=== PATIENT | male | born 1960 | race African-American/Black ===

== ENCOUNTER 2020-07-23 21:23 | Inpatient (IN) | payer OTHER ==
--- NOTE | 2020-07-23 21:31 | PDOC ---
Rapid Medical Evaluation Time Seen by Provider: 07/23/20 21:26 Medical Evaluation: Allergies Allergy/AdvReac Type Severity Reaction Status Date / Time NSAIDS (Non-Steroidal Allergy Verified 02/15/20 20:09 Anti-Inflamma 07/23/20 21:29 I performed a brief in-person evaluation of this patient. Pt is a 60 y/o male with complaint of a syncopal episode at about 5 pm today. He states he has had multiple syncopal episodes within the last year and currently has a loop recorder. He states he was clammy, got chest pain, started to have visual changes and then syncopized. He states this is typical for his syncopal episodes. He has a history of chronic back pain on oxycodone. Pertinent physical exam findings: speaking in full sentences, CP not reproducible I have ordered the following: cardiac work up, ekg, cxr Patient to proceed to ED for further evaluation. Discharge Disposition - Diagnosis Syncope - Referrals - Patient Instructions - Post Discharge Activity
[2020-07-23 22:20] LABS: BASO % 1.6 % (0-2.0); EOS % 1.7 % (0-4.5); HEMATOCRIT 32.6 % (35.4-49); HEMOGLOBIN 10.4 GM/dL (11.7-16.9); LYMPH % 27.3 % (8-40); MCH 27.7 pg (25.7-33.7); MEAN CELL VOLUME 86.5 fl (80-96); MEAN PLT VOLUME 9.8 fl (7.5-11.1); MONO % 6.3 % (3.8-10.2); NEUT % 63.1 % (42.8-82.8); PLATELET COUNT 142 K/MM3 (134-434); RBC 3.76 M/mm3 (4.00-5.60); RDW 17.6 % (11.9-15.9); WHITE BLOOD COUNT 4.6 K/mm3 (4.0-10.0)
[2020-07-23 22:30] LABS: INR 0.84 (0.83-1.09); PROTHROMBIN TIME (PATIENT) 9.9 SEC (9.7-13.0)
[2020-07-23 22:32] LABS: ACTIVATED PTT 22.1 SECONDS (25.2-36.5)
[2020-07-23] MEDS ORDERED: predniSONE 5 MG TABLET (UD) PO ONE (22:40)
[2020-07-23] MEDS ORDERED: oxyCODONE HCL 5 MG TABLET PO ONE (22:40)
--- NOTE | 2020-07-23 23:04 | PDOC ---
History of Present Illness - General Chief Complaint: Chest Pain Stated Complaint: CHEST PAIN/SYNCOPE Time Seen by Provider: 07/23/20 21:26 Past History - Medical History Allergies/Adverse Reactions: Allergies Allergy/AdvReac Type Severity Reaction Status Date / Time NSAIDS (Non-Steroidal Allergy Verified 02/15/20 20:09 Anti-Inflamma Home Medications: Ambulatory Orders Oxycodone HCl/Acetaminophen [Percocet 10-325 mg Tablet] 1 each PO Q6H PRN 02/16/20 Acetaminophen [Tylenol .Regular Strength -] 650 mg PO Q4H PRN tablet 02/19/20 Ascorbic Acid [Vitamin C -] 250 mg PO DAILY #30 tablet 02/19/20 Ferrous Sulfate [Feosol] 325 mg PO BID #60 ud 02/19/20 Multivitamins [Multivit ([facility] Formulary)] 1 tab PO DAILY tab 02/19/20 Pantoprazole Sodium [Protonix -] 40 mg PO DAILY #30 tablet.ec 02/19/20 oxyCODONE HCL [Roxicodone -] 10 mg PO Q6H PRN tablet 02/19/20 Anemia: Yes Cardiac Disorders: Yes (loop recorder placed may 2019) COPD: No Other medical history: Degenerative disease - Surgical History Gastric Stapling: Yes - Psycho-Social/Smoking History Smoking History: Former smoker Have you smoked in the past 12 months: No If you are a former smoker, when did you quit?: 16 Information on smoking cessation initiated: No - Substance Abuse Hx (Audit-C & DAST Scrn) How often the patient has a drink containing alcohol: Never Score: In Men: 4 or > Positive; In Women: 3 or > Positive: 0 Screen Result (Pos requires Nsg. Audit-10AR): Negative In the last yr the pt used illegal drug/Rx for NonMed reason: No Score: Yes response is considered Positive: 0 Screen Result (Positive result requires Nsg. DAST-10): Negative Review of Systems - Review of Systems Able to Perform ROS?: Yes Constitutional: Yes: Weakness. No: Unintentional Wgt. Loss, Unexplained wgt Loss HEENTM: Yes: Blurred Vision, Double Vision, Tinnitus Respiratory: No: SOB at Rest, Stridor, Productive cough, Hemoptysis Cardiac (ROS): Yes: Lightheadedness, Syncope. No: Chest Pain, Edema, Irregular Heart Rate, Chest Tightness ABD/GI: Yes: Nausea. No: Constipated, Diarrhea, Vomiting, Abdominal cramping Musculoskeletal: Yes: Muscle Weakness. No: Back Pain Integumentary: Yes: Dryness. No: Rash Neurological: Yes: Headache. No: Seizure, Unsteady Gait *Physical Exam - Vital Signs Last Vital Signs Temp Pulse Resp BP Pulse Ox 97.5 F L 101 H 19 119/81 100 07/23/20 21:26 07/23/20 21:26 07/23/20 21:26 07/23/20 21:26 07/23/20 21:26 - Physical Exam General Appearance: Yes: Appropriately Dressed, Disheveled. No: Apparent Distress HEENT: positive: EOMI. negative: Scleral Icterus (R), Scleral Icterus (L) Neck: positive: Trachea midline, Normal Thyroid, Supple. negative: Tender, Lymphadenopathy (R), Rigidity, Thyromegaly Respiratory/Chest: positive: Lungs Clear, Normal Breath Sounds. negative: Chest Tender, Respiratory Distress, Accessory Muscle Use Cardiovascular: positive: Regular Rhythm, Regular Rate, S1, S2 Gastrointestinal/Abdominal: positive: Normal Bowel Sounds, Soft. negative: Pulsatile Mass, Guarding, Rebound Musculoskeletal: positive: Normal Inspection. negative: CVA Tenderness Extremity: positive: Normal Capillary Refill, Normal Inspection Integumentary: positive: Normal Color, Dry, Warm Neurologic: positive: Fully Oriented, Alert, Normal Mood/Affect, Normal Response ED Treatment Course - LABORATORY CBC & Chemistry Diagram: 07/23/20 22:05 07/23/20 22:05 - ADDITIONAL ORDERS Additional order review: Laboratory Results 07/23/20 07/23/20 22:05 22:05 PT with INR 9.90 INR 0.84 PTT (Actin FS) 22.1 L Sodium 141 Potassium 4.6 Chloride 108 H Carbon Dioxide 27 Anion Gap 6 L BUN 20.6 H Creatinine 1.1 Est GFR (CKD-EPI)AfAm 84.12 Est GFR (CKD-EPI)NonAf 72.58 Random Glucose 81 Calcium 8.4 L Magnesium 2.4 Total Bilirubin 0.3 AST 17 ALT 27 Alkaline Phosphatase 89 Creatine Kinase 84 Troponin I < 0.02 Total Protein 7.4 Albumin 3.7 07/23/20 22:05 RBC 3.76 L MCV 86.5 MCHC 32.0 RDW 17.6 H MPV 9.8 Neutrophils % 63.1 D Lymphocytes % 27.3 Monocytes % 6.3 Eosinophils % 1.7 D Basophils % 1.6 - Medications Given in the ED: ED Medications Discontinued Medications Generic Name Dose Route Start Last Admin Trade Name Grace PRN Reason Stop Dose Admin Lactated Ringer's 1,000 ml 07/23/20 23:34 07/23/20 23:36 Lactated Ringers Solution IV 07/23/20 23:35 1,000 ml ONCE ONE Administration Oxycodone HCl 10 mg 07/23/20 22:40 07/23/20 23:36 Roxicodone - PO 07/23/20 22:41 10 mg ONCE ONE Administration Prednisone 5 mg 07/23/20 22:40 07/23/20 23:36 Deltasone - PO 07/23/20 22:41 5 mg ONCE ONE Administration Medical Decision Making - Medical Decision Making 07/24/20 01:07 Admit to tele obs Discharge - Discharge Information Problems reviewed: Yes Clinical Impression/Diagnosis: Syncope Qualifiers: Syncope type: unspecified Qualified Code(s): R55 - Syncope and collapse Condition: Stable - Admission Yes - Follow up/Referral - Patient Discharge Instructions - Post Discharge Activity
[2020-07-23] MEDS ORDERED: oxyCODONE HCL 5 MG TABLET ONE (23:15)
[2020-07-23 23:27] LABS: ALBUMIN 3.7 g/dl (3.4-5.0); ALK PHOS 89 U/L (45-117); ANION GAP 6 MMOL/L (8-16); BILIRUBIN,TOTAL 0.3 mg/dL (0.2-1); BLOOD UREA NITROGEN 20.6 mg/dL (7-18); CALCIUM 8.4 mg/dL (8.5-10.1); CHLORIDE 108 mmol/L (98-107); CO2 27 mmol/L (21-32); CREATININE 1.1 mg/dL (0.55-1.3); GLUCOSE,RANDOM 81 mg/dL (74-106); MAGNESIUM 2.4 mg/dL (1.8-2.4); POTASSIUM 4.6 mmol/L (3.5-5.1); SGOT/AST 17 U/L (15-37); SGPT/ALT 27 U/L (13-61); SODIUM 141 mmol/L (136-145); TOT PROT 7.4 g/dl (6.4-8.2)
[2020-07-23] MEDS ORDERED: LACTATED RINGERS SOLUTION 1000 ML INFUS.BAG IV ONE (23:34)
--- NOTE | 2020-07-23 23:49 | PDOC ---
Documentation entered by Sia Hassan SCRIBE, acting as scribe for Nilda Walsh DO. Nilda Walsh DO: This documentation has been prepared by the kandace, Sia Hassan SCRIBE, under my direction and personally reviewed by me in its entirety. I confirm that the documentation accurately reflects all work, treatment, procedures, and medical decision making performed by me. Attending Attestation - Resident Resident Name: Maverick Sofia - ED Attending Attestation I have performed the following: I have examined & evaluated the patient, The case was reviewed & discussed with the resident, I agree w/resident's findings & plan, Exceptions are as noted - HPI HPI: 07/23/20 21:59 Patient is a 60 year old male with a significant past medical history of syncope, chronic back pain, and adrenal insufficiency who presents to the ED for evaluation after a syncope episode that occurred earlier today. 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 Patient lives in the [place] and was getting treated by PCP there for syncope. Patient denies: nausea, vomiting, SOB chest pain, abdominal pain, diarrhea, or any other related symptoms. Allergies: NSAIDS - Physicial Exam PE: 07/23/20 22:41 Gen: aaox3, nad heent: PERRL, EOMI, MMM, no tongue biting neck: supple heart: +s1s2 reg lungs: cta b/l abd: soft, nt/nd +bs ext: no c/c/e neuro: cn ii-xii grossly intact, ambulatory in the ER with a steady gait, muscle strength 5/5 UE and LE, sensation intact - Medical Decision Making 07/23/20 22:42 a/p: 60yo male with a syncopal episode tonight while at work -has a loop recorder in place from [employer] that was placed in december after a syncopal episode -PMD in [place] -will send labs, ekg, cxr, trop, head ct -will monitor on tele -will need obs for syncope -pt neuro intact -hx of adrenal insufficiency, will dose night time meds -also with chronic pain, follows with pain management, takes oxycodone 10mg q6hrs -will monitor and reassess 07/23/20 23:34 trop neg elevated bun 07/24/20 00:32 cxr neg 07/24/20 01:[address] negative for acute findings will send [facility]blog to [facility] for syncope Heart Score/ECG Review - ECG Intrepretation Comment:: 07/23/20 22:43 sinus at 78, nl axis, nlinterval, pvc, no acute st/t wave findings Discharge - Discharge Information Problems reviewed: Yes Clinical Impression/Diagnosis: Syncope Condition: Fair - Admission Yes - Follow up/Referral - Patient Discharge Instructions - Post Discharge Activity
--- NOTE | 2020-07-24 02:20 | PN ---
Teaching Attending Note Name of Resident: Tierra Aguirre ATTENDING PHYSICIAN STATEMENT I saw and evaluated the patient. I reviewed the resident's note and discussed the case with the resident. I agree with the resident's findings and plan as documented. SUBJECTIVE: Patient is a 60 year old man with a PMH of NSAID allergy, Syncope, GI bleeding, Polyps on recent colonoscopy, Gastric bypass, Meningioma (found in MRI in April 2020), Loop recorder, Chronic back pain and Adrenal insufficiency who presents to the ER for evaluation after a syncopal episode that occurred earlier today. 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 Patient lives in the [place] and was getting treated by PCP there for syncope. Was off his medications -including bid Hydrocortisone - recently for weeks due to health insurance issues. Patient denies chest pain, shortness of breath, abdominal pain, headache, palpitations, dizziness, fever, chills, nausea, vomiting, diarrhea, constipation, dysuria, frequency, urgency, melena, hematochezia or hematuria. Denies alcohol, tobacco or illicit drug use. No sick contacts or recent travels. Family history DM in Dad, Asthma in Mum and his sister of colon cancer. OBJECTIVE: Alert and not orthostatic Vital Signs Period Temp Pulse Resp BP Sys/Sparks Pulse Ox Last 24 Hr 97.5 F 101 19 119/81 100 HEENT: No Jaundice, eye redness or discharge, PERRLA, EOMI. Normocephalic, atraumatic. External ears are normal and hearing is grossly intact. No nasal discharge. Neck: Supple, nontender. No palpable adenopathy or thyromegaly. No JVD Chest: Good effort. Clear to auscultation and percussion. Heart: Regular. No S3, rub or murmur Abdomen: Not distended, soft, nontender and no HSM. No rebound or guarding. Normal bowel sounds. Ext: Peripheral pulses intact. No leg edema. Skin: Warm and dry. No petechiae, rash or ecchymosis. Neuro: Alert. Oriented x3. CN 2-12 grossly intact. Sensation grossly intact in all four extremities and DTR are symmetric. Psych: Appropriate mood and affect. Good insight. Home Medications Medication Instructions Recorded Oxycodone HCl/Acetaminophen 1 each PO Q6H PRN 02/16/20 [Percocet 10-325 mg Tablet] Acetaminophen [Tylenol .Regular 650 mg PO Q4H PRN tablet 02/19/20 Strength -] Ascorbic Acid [Vitamin C -] 250 mg PO DAILY #30 tablet 02/19/20 Ferrous Sulfate [Feosol] 325 mg PO BID #60 ud 02/19/20 Multivitamins [Multivit ([facility] 1 tab PO DAILY tab 02/19/20 Formulary)] Pantoprazole Sodium [Protonix -] 40 mg PO DAILY #30 tablet.ec 02/19/20 oxyCODONE HCL [Roxicodone -] 10 mg PO Q6H PRN tablet 02/19/20 Abnormal Lab Results 07/23/20 07/23/20 07/23/20 22:05 22:05 22:05 RBC 3.76 L Hgb 10.4 L Hct 32.6 L RDW 17.6 H PTT (Actin FS) 22.1 L Chloride 108 H Anion Gap 6 L BUN 20.6 H Calcium 8.4 L ASSESSMENT AND PLAN: 1. Syncope - No acute abnormality on CXR and an electronic device (loop recorder) at the left margin of the heart. No evidence of acute intracranial pathology on noncontrast head CT scan. Viral testing for COVID-19 ordered and patient placed on airborne, droplet and contact isolation. EKG shows NSR at 78/minute, PVCs and QTc [address]-T wave changes. Not significantly changed compared to prior EKG. Initial troponin is negative. Will avoid drugs that may prolong QTc. Will admit to telemetry, repeat troponin, repeat EKG, get ECHO, carotid doppler, fasting lipids, do speech and swallow evaluation, neurochecks and implement fall/aspiration/seizure precautions. Consult Cardiology/PT/Neurology. During the day, will get results of his recent MRI from his PCP. Discuss with Cardiology whether he can get a brain MRI with a loop recorder in place. Got Prednisone and Oxycdone in the ER. Will restart all his home medications. Will continue comprehensive care for all of patients comorbid conditions treatment of Adrenal insufficiency. Consult Endocrine 2. Anemia Cause unclear. Will do basic anemia work up including serial stool guaiacs, reticulocyte count and iron studies. 3. Obesity Counseled on the risks associated with obesity. Will provide patient all the necessary assistance, counseling and positive reinforcement to facilitate weight loss. Consult client service professional. 4. Hypertension Will restart suitable outpatient antihypertensive drugs when clinically appropriate. Subsequently, will revise regimen to ensure [id number] excellent BP control. Patient counseled on the injurious effects of uncontrolled hypertension. Nonpharmacologic measures to control hypertension like weight loss, salt restriction and exercise stressed. Importance of adherence to treatment regimen and attainment of normotension emphasized. 5. DVT prophylaxis - Lovenox 40 mg SQ q 24 hours. 6. Advance directives - Full code
--- NOTE | 2020-07-24 06:24 | HP ---
CHIEF COMPLAINT: PCP: HISTORY OF PRESENT ILLNESS: 60yo M with PMHx of multiple syncopal episodes, chronic back pain, adrenal insufficiency, migraines, loop recorder in place, and recent MRI study showing meningioma who presented for another syncopal episode. The syncopal episodes started last year and initially occurred monthly, but recently they have progressed to occurring 2-3x/week. He has not been able to correlate the episodes with any particular activity. He has also experienced severe headaches since about November that he describes as throbbing and are associated with photophobia. Furthermore, he feels his vision has worsened in the last 4-5 weeks. Endorsed vertigo and nausea, but denied VD, constipation, dysuria, polyuria. ER course was notable for: (1) anemia (Hgb 10.4, Hct 32.6), PTT 22.1 (2) EKG showing sinus arrhythmia with occasional PVCs Recent Travel: none PAST MEDICAL HISTORY: as per HPI PAST SURGICAL HISTORY: gastric bypass 2001 rotator cuff repair Social History: Smokin-7 cigs per day from 18yo to 42yo Alcohol: maybe one beer per month Drugs: denied Work: [employer] Home: lives alone, recently purchased a condo in the [place] Allergies NSAIDS (Non-Steroidal Anti-Inflamma Allergy (Verified 02/15/20 20:09) HOME MEDICATIONS: Home Medications Medication Instructions Recorded Oxycodone HCl/Acetaminophen 1 each PO Q6H PRN 02/16/20 [Percocet 10-325 mg Tablet] Acetaminophen [Tylenol .Regular 650 mg PO Q4H PRN tablet 02/19/20 Strength -] Ascorbic Acid [Vitamin C -] 250 mg PO DAILY #30 tablet 02/19/20 Ferrous Sulfate [Feosol] 325 mg PO BID #60 ud 02/19/20 Multivitamins [Multivit ([facility] 1 tab PO DAILY tab 02/19/20 Formulary)] Pantoprazole Sodium [Protonix -] 40 mg PO DAILY #30 tablet.ec 02/19/20 oxyCODONE HCL [Roxicodone -] 10 mg PO Q6H PRN tablet 02/19/20 REVIEW OF SYSTEMS as per HPI PHYSICAL EXAMINATION Vital Signs - 24 hr 07/23/20 07/24/20 21:26 03:24 Temperature 97.5 F L Pulse Rate 101 H Pulse Rate [ 58 L Apical] Respiratory 19 18 Rate Blood Pressure 119/81 Blood Pressure 127/94 [Right Arm] O2 Sat by Pulse 100 99 Oximetry (%) GENERAL: AAM, overweight body habitus, AAOx4 showing no signs of acute distress HEAD: Normal with no signs of trauma EYES: PERRL, extraocular movements intact bilaterally EARS, NOSE, THROAT: dry mucous membranes. NECK: No lymphadenopathy LUNGS: CTAB. No wheezes HEART: RRR, normal S1 and S2 without murmur ABDOMEN: Soft, mildly tender with positive Dela Cruz's sign, mildly protuberant, normoactive bowel sounds EXTREMITIES: 2+ radial and dorsalis pedis pulses, warm to touch bilaterally, nontender to palpation, no peripheral edema appreciated, no active lesions or ulcers noted on feet bilaterally including interdigital web spaces NEUROLOGICAL: Cranial nerves II-XII grossly intact. Normal speech with symmetricalfacial movements PSYCHIATRIC: Cooperative and interactive, responds appropriately. Limited eye contact. Tired mood and affect congruent with stated mood SKIN: no rashes or lesions noted Laboratory Results - last 24 hr 07/23/20 07/23/20 07/23/20 22:05 22:05 22:05 WBC 4.6 RBC 3.76 L Hgb 10.4 L Hct 32.6 L MCV 86.5 MCH 27.7 MCHC 32.0 RDW 17.6 H Plt Count 142 D MPV 9.8 Absolute Neuts (auto) 2.9 Neutrophils % 63.1 D Lymphocytes % 27.3 Monocytes % 6.3 Eosinophils % 1.7 D Basophils % 1.6 Nucleated RBC % 0 PT with INR 9.90 INR 0.84 PTT (Actin FS) 22.1 L Sodium 141 Potassium 4.6 Chloride 108 H Carbon Dioxide 27 Anion Gap 6 L BUN 20.6 H Creatinine 1.1 Est GFR (CKD-EPI)AfAm 84.12 Est GFR (CKD-EPI)NonAf 72.58 Random Glucose 81 Calcium 8.4 L Magnesium 2.4 Total Bilirubin 0.3 AST 17 ALT 27 Alkaline Phosphatase 89 Creatine Kinase 84 Troponin I < 0.02 Total Protein 7.4 Albumin 3.7 ASSESSMENT/PLAN: 60yo M with PMHx of multiple syncopal episodes, chronic back pain, adrenal insufficiency, migraines, loop recorder in place, and recent MRI study showing meningioma who presented for another syncopal episode. ED workup was remarkable for anemia (Hgb 10.4, Hct 32.6), PTT 22.1 and EKG showing sinus arrhythmia with occasional PVCs. #syncope workup differential dx: 2/2 to meningioma, 2/2 to adrenal insufficiency, 2/2 complex migraines, cardiac ediology, less likely orthostatics or dehydration - primary goal would be to obtain MRI results from hospital. Patient unable to recall which hospital, may re-discuss with patient, contact family members, contact PCP, or get social work involved - neurology consulted - repeat MRI? assess MRI compatibility with loop recorder - cardiology consulted given EKG findings - Echo ordered - Carotid doppler ordered - lipid profile - speech and swallow eval - repeat trop - PT - iron studies for anemia workup - restart home meds and supplements: hydrocortisone 10mg am, 5mg pm, iron, Ca, multivits, B12, folate #FEN - no standing fluids - replete lytes PRN - regular diet #PPX - DVT: lovenox #Dispo: Telemetry Family Medical History Family History: As Documented Visit type - Emergency Visit Emergency Visit: Yes ED Registration Date: 07/24/20 Care time: The patient presented to the Emergency Department on the above date and was hospitalized for further evaluation of their emergent condition. - New Patient This patient is new to me today: Yes Date on this admission: 07/24/20 - Critical Care Critical Care patient: No ATTENDING PHYSICIAN STATEMENT I saw and evaluated the patient. I reviewed the resident's note and discussed the case with the resident. I agree with the resident's findings and plan as documented. SUBJECTIVE: OBJECTIVE: ASSESSMENT AND PLAN:
[2020-07-24] MEDS ORDERED: oxyCODONE HCL 5 MG TABLET PO ONE (09:38)
[2020-07-24] MEDS ORDERED: oxyCODONE HCL 10 MG SUSTAINED ACTING TABLET ONE ×2 (09:48→15:56)
[2020-07-24] MEDS: ENOXAPARIN NA (PORCINE) 40 MG/0.4 ML DISP.SYRIN SQ SCH (09:59)
--- NOTE | 2020-07-24 10:06 | EKG ---
Test Reason : Blood Pressure : / mmHG Vent. Rate : 078 BPM Atrial Rate : 078 BPM P-R Int : 152 ms QRS Dur : 088 ms QT Int : 396 ms P-R-T Axes : 061 015 063 degrees QTc Int : 451 ms SINUS RHYTHM WITH SINUS ARRHYTHMIA WITH OCCASIONAL PREMATURE VENTRICULAR COMPLEXES OTHERWISE NORMAL ECG WHEN COMPARED WITH ECG OF 15-FEB-2020 20:27, PREMATURE VENTRICULAR COMPLEXES ARE NOW PRESENT Confirmed by SLOANE KING, ROSARIO ([id number]) on 07/24/2020 10:05:36 AM Referred By: Confirmed By:ROSARIO ANTON MD
--- NOTE | 2020-07-24 11:03 | CONSULT ---
Admitting History and Physical - Admission History of Present Illness: 60yo M with PMHx of multiple syncopal episodes, chronic back pain, adrenal insufficiency, migraines, loop recorder in place, and recent MRI study showing meningioma who presented for another syncopal episode. Selected Entries 07/24/20 07/24/20 07/24/20 03:00 03:24 07:10 Temperature 97.9 F Pulse Rate [ 58 L 68 Apical] Respiratory 18 17 Rate Respiratory Normal Normal Depth Respiratory Non-Labored Non-Labored Effort Oxygen Delivery Room Air Room Air Room Air Method 07/24/20 09:59 Temperature Pulse Rate [ 48 L Apical] Respiratory 21 H Rate Respiratory Normal Depth Respiratory Non-Labored Effort Oxygen Delivery Room Air Method Laboratory Tests 07/23/20 07/24/20 22:05 03:16 WBC 4.6 COVID-19 (ZAIRE) Pending Reg diet/thin liquids ordered. - Past Medical History Cardiovascular: Yes: Other (Syncope) - Smoking History Smoking history: Former smoker Have you smoked in the past 12 months: No If you are a former smoker, when did you quit?: 16 - Alcohol/Substance Use Hx Alcohol Use: Yes (Social) History of Substance Use: reports: Cocaine History - Admission Reason For Visit: SYNCOPE
--- NOTE | 2020-07-24 11:36 | PN ---
Physical Exam: SUBJECTIVE: Patient seen and examined at bedside. He endorses prodromal dizziness, chest pain, nausea prior to syncopal event. He states this has occurred similarly in the past when he is physically active. Endorses workup only during prior hospitalizations- states he did not have insurance and was unable to follow up as outpatient. OBJECTIVE: Vital Signs Period Temp Pulse Resp BP Sys/Sparks Pulse Ox Last 24 Hr 97.5 F-97.9 F 48-101 17-21 119-150/63-99 98-100 GENERAL: The patient is awake, alert, and fully oriented, in no acute distress. HEAD: Normocephalic, atraumatic. EYES: PERRL, extraocular movements intact, sclera anicteric. ENT: Oropharynx clear, without erythema or exudates. Moist mucous membranes. NECK: Trachea midline, full range of motion. Supple without lymphadenopathy. LUNGS: Breath sounds equal, clear to auscultation bilaterally. No wheezes, no crackles. No accessory muscle use. HEART: Regular rate and rhythm. S1, S2 without murmur, rub or gallop. ABDOMEN: Soft, nondistended, nontender to light and deep palpation x4 quadrants. No rebound tenderness, no guarding. Normoactive bowel sounds x4 quadrants. No hepatosplenomegaly, no masses appreciated. EXTREMITIES: 2+ radial, dorsalis pedis pulses bilaterally. Warm, well-perfused. No lower extremity edema bilaterally. BACK: Tenderness to palpation over thoracic and lumbar spine. NEUROLOGICAL: Cranial nerves II through XII grossly intact. Normal speech. No gross focal deficits. PSYCH: Normal mood, normal affect upon my encounter. SKIN: Warm, dry. Laboratory Results - last 24 hr 07/23/20 07/23/20 07/23/20 22:05 22:05 22:05 WBC 4.6 RBC 3.76 L Hgb 10.4 L Hct 32.6 L MCV 86.5 MCH 27.7 MCHC 32.0 RDW 17.6 H Plt Count 142 D MPV 9.8 Absolute Neuts (auto) 2.9 Neutrophils % 63.1 D Lymphocytes % 27.3 Monocytes % 6.3 Eosinophils % 1.7 D Basophils % 1.6 Nucleated RBC % 0 PT with INR 9.90 INR 0.84 PTT (Actin FS) 22.1 L Sodium 141 Potassium 4.6 Chloride 108 H Carbon Dioxide 27 Anion Gap 6 L BUN 20.6 H Creatinine 1.1 Est GFR (CKD-EPI)AfAm 84.12 Est GFR (CKD-EPI)NonAf 72.58 Random Glucose 81 Calcium 8.4 L Magnesium 2.4 Total Bilirubin 0.3 AST 17 ALT 27 Alkaline Phosphatase 89 Creatine Kinase 84 Troponin I < 0.02 Total Protein 7.4 Albumin 3.7 Active Medications Generic Name Dose Route Start Last Admin Trade Name Freq PRN Reason Stop Dose Admin Enoxaparin Sodium 40 mg 07/24/20 10:00 07/24/20 09:59 Lovenox - SQ 40 mg DAILY AYAKA Administration ASSESSMENT/PLAN: Patient is a 60 year old male with history of numerous prior syncopal episodes s/p loop recorder, reported meningioma, adrenal insufficiency, GI polyps (s/p colonoscopy 4 years ago), chronic back pain, presents after syncopal episode. Syncopal episode -Etiology may be neurogenic (secondary to ?meningioma), cardiac (arrhythmia), or endocrine (adrenal insufficiency). -CT head negative for acute pathology. Attempting to obtain records regarding prior MRI that revealed meningioma. -Obtain thoracic, lumbar spine radiograph as patient had some tenderness to palpation s/p fall -noted history chronic back pain. -Orthostatics negative -EKG reveals sinus rhythm, with sinus arrhythmia and PVCs. Troponin negative. -Cardiac telemetry monitoring -Cardiology consult for interrogation of loop recorder. -Last transthoracic cardiac ECHO was done on 02/2020- EF 55%, unremarkable study -Carotid duplex -Fall precautions Adrenal insufficiency -Continue home Hydrocortisone Normocytic anemia -Prior hospitalization with diagnosis of iron deficiency anemia -Obtain anemia workup. History of meningioma -CT head unremarkable. -Attempting to obtain records regarding prior MRI that revealed meningioma. Gastro-esophageal reflux -Pantoprazole 40mg PO daily. Chronic back pain -Continue home Acetaminophen, Oxycodone FEN -No IV fluids indicated -Follow BMP -Sodium modified diet Prophylaxis -Lovenox 40mg subq daily -Pantoprazole 40mg PO daily Disposition -Continue care on Telemetry floor Visit type - Emergency Visit Emergency Visit: Yes ED Registration Date: 07/24/20 Care time: The patient presented to the Emergency Department on the above date and was hospitalized for further evaluation of their emergent condition. - New Patient This patient is new to me today: Yes Date on this admission: 07/24/20 - Critical Care Critical Care patient: No - Discharge Referral Referred to [facility] Med P.C.: No ATTENDING PHYSICIAN STATEMENT I saw and evaluated the patient. I reviewed the resident's note and discussed the case with the resident. I agree with the resident's findings and plan as documented. SUBJECTIVE: OBJECTIVE: ASSESSMENT AND PLAN:
--- NOTE | 2020-07-24 11:49 | PN ---
Teaching Attending Note Name of Resident: Mateo Reyes ATTENDING PHYSICIAN STATEMENT I saw and evaluated the patient. I reviewed the resident's note and discussed the case with the resident. I agree with the resident's findings and plan as documented. SUBJECTIVE: Seen and examined at bedside. Patient complaining of chronic back pain. Is alert and oriented x3, hypertensive due to the pain. 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 This patient has had numerous hospitalizations at multiple different hospitals without adequate follow-up for the last 6 months and is highly disorganized care. #Syncopal episode Broad differential includes cardiac, chronic opiate use, possible intracranial m ass, incompletely treated renal insufficiency Echocardiogram, telemetry, cardiology consult to interrogate loop recorder Obtain outside records from previous hospitalizations to determine any previous diagnoses and work-up Hold on new MRI Brain pending obtaining initial recent MRI from [facility] -Check a.m. cortisol Check orthostatics #Adrenal insufficiency Continue home dose prednisone Check a.m. cortisol #Normocytic anemia Per patient was previously diagnosed with iron deficiency anemia Check iron panels, anemia work-up #Chronic back pain Continue chronic opiates #GERD Continue home pantoprazole
[2020-07-24] MEDS ORDERED: ACETAMINOPHEN 325 MG TABLET (FP) PO PRN (13:44)
[2020-07-24 13:53] LABS: BASO % 0.9 % (0-2.0); EOS % 2.4 % (0-4.5); HEMATOCRIT 31.1 % (35.4-49); HEMOGLOBIN 9.8 GM/dL (11.7-16.9); LYMPH % 31.3 % (8-40); MCH 27.3 pg (25.7-33.7); MCHC 31.4 g/dl (32.0-35.9); MEAN CELL VOLUME 87.1 fl (80-96); MEAN PLT VOLUME 9.1 fl (7.5-11.1); MONO % 6.8 % (3.8-10.2); NEUT % 58.6 % (42.8-82.8); PLATELET COUNT 124 K/MM3 (134-434); RBC 3.57 M/mm3 (4.00-5.60); RDW 18.2 % (11.9-15.9); WHITE BLOOD COUNT 5.1 K/mm3 (4.0-10.0)
[2020-07-24 14:29] LABS: ALBUMIN 3.3 g/dl (3.4-5.0); BILIRUBIN,TOTAL 0.2 mg/dL (0.2-1); BLOOD UREA NITROGEN 16.8 mg/dL (7-18); CALCIUM 8.4 mg/dL (8.5-10.1); CREATININE 1.1 mg/dL (0.55-1.3); MAGNESIUM 2.2 mg/dL (1.8-2.4); PHOSPHOROUS 4.3 mg/dL (2.5-4.9); POTASSIUM 4.5 mmol/L (3.5-5.1); TOT PROT 6.7 g/dl (6.4-8.2)
[2020-07-24 14:34] LABS: IRON SERUM 68 ug/dL (50-175); TOTAL IRON BINDING CAPACITY 403 ug/dL (250-450)
--- NOTE | 2020-07-24 15:38 | CON.CARD ---
Cardiology Consult (text) - Consultation Consultation Note: Chief Complaint: Syncope History of Present Illness: Patient is a 60 year old male with history of syncope s/p Loop recorder ([employer]) implanted in May 2019 at [facility] here with syncope. Pt has had several episodes over past year. All similar, he feels lightheaded and sweaty and then faints. At times he has cp that is often independent of syncope. This is sharp pain on left chest that is worse with deep breaths, cough and pressing on the area. No sob palps pnd orthopnea le edema. pmh: per hpi psh: loop recorder, shoulder surgery social: no tob fam: no premature cad, scd ros: per hpi; all others nl meds: Ambulatory Orders Oxycodone HCl/Acetaminophen [Percocet 10-325 mg Tablet] 1 each PO Q6H PRN 02/16/20 Acetaminophen [Tylenol .Regular Strength -] 650 mg PO Q4H PRN tablet 02/19/20 Ascorbic Acid [Vitamin C -] 250 mg PO DAILY #30 tablet 02/19/20 Ferrous Sulfate [Feosol] 325 mg PO BID #60 ud 02/19/20 Multivitamins [Multivit ([facility] Formulary)] 1 tab PO DAILY tab 02/19/20 Pantoprazole Sodium [Protonix -] 40 mg PO DAILY #30 tablet.ec 02/19/20 oxyCODONE HCL [Roxicodone -] 10 mg PO Q6H PRN tablet 02/19/20 Hydrocortisone 5 mg PO DAILY 07/24/20 Hydrocortisone 10 mg PO HS 07/24/20 Vital Signs Period Temp Pulse Resp BP Sys/Sparks Pulse Ox Last 24 Hr 97.5 F-97.9 F 48-101 17-21 118-150/63-99 98-100 nad no jvd rrr s1s2 no mrg cta bl nl eff aao3 no le e/c/c abd nt nd pos bs no jaundice diaphoresis pos dp pt no carotid bruits +chest wall tenderness Laboratory Last Values WBC 5.1 K/mm3 (4.0-10.0) 07/24/20 13:40 RBC 3.57 M/mm3 (4.00-5.60) L 07/24/20 13:40 Hgb 9.8 GM/dL (11.7-16.9) L 07/24/20 13:40 Hct 31.1 % (35.4-49) L 07/24/20 13:40 MCV 87.1 fl (80-96) 07/24/20 13:40 MCH 27.3 pg (25.7-33.7) 07/24/20 13:40 MCHC 31.4 g/dl (32.0-35.9) L 07/24/20 13:40 RDW 18.2 % (11.9-15.9) H 07/24/20 13:40 Plt Count 124 K/MM3 (134-434) L 07/24/20 13:40 MPV 9.1 fl (7.5-11.1) 07/24/20 13:40 Absolute Neuts (auto) 3.0 K/mm3 (1.5-8.0) 07/24/20 13:40 Neutrophils % 58.6 % (42.8-82.8) 07/24/20 13:40 Lymphocytes % 31.3 % (8-40) 07/24/20 13:40 Monocytes % 6.8 % (3.8-10.2) 07/24/20 13:40 Eosinophils % 2.4 % (0-4.5) 07/24/20 13:40 Basophils % 0.9 % (0-2.0) 07/24/20 13:40 Nucleated RBC % 0 % (0-0) 07/24/20 13:40 PT with INR 9.90 SEC (9.7-13.0) 07/23/20 22:05 INR 0.84 (0.83-1.09) 07/23/20 22:05 PTT (Actin FS) 22.1 SECONDS (25.2-36.5) L 07/23/20 22:05 Sodium 140 mmol/L (136-145) 07/24/20 13:40 Potassium 4.5 mmol/L (3.5-5.1) 07/24/20 13:40 Chloride 108 mmol/L (98-107) H 07/24/20 13:40 Carbon Dioxide 25 mmol/L (21-32) 07/24/20 13:40 Anion Gap 7 MMOL/L (8-16) L 07/24/20 13:40 BUN 16.8 mg/dL (7-18) 07/24/20 13:40 Creatinine 1.1 mg/dL (0.55-1.3) 07/24/20 13:40 Est GFR (CKD-EPI)AfAm 84.12 07/24/20 13:40 Est GFR (CKD-EPI)NonAf 72.58 07/24/20 13:40 Random Glucose 99 mg/dL (74-106) 07/24/20 13:40 Calcium 8.4 mg/dL (8.5-10.1) L 07/24/20 13:40 Phosphorus 4.3 mg/dL (2.5-4.9) 07/24/20 13:40 Magnesium 2.2 mg/dL (1.8-2.4) 07/24/20 13:40 Iron 68 ug/dL (50-175) 07/24/20 13:40 TIBC 403 ug/dL (250-450) 07/24/20 13:40 TIBC Cancelled 07/24/20 13:40 Iron Saturation 16 % (17.5-39) L 07/24/20 13:40 Unsaturated IBC 335 ug/dL (200-275) H 07/24/20 13:40 Ferritin 11.4 ng/ml (8-388) 07/24/20 13:40 Ferritin Cancelled 07/24/20 13:40 Total Bilirubin 0.2 mg/dL (0.2-1) 07/24/20 13:40 AST 18 U/L (15-37) 07/24/20 13:40 ALT 31 U/L (13-61) 07/24/20 13:40 Alkaline Phosphatase 82 U/L (45-117) 07/24/20 13:40 Creatine Kinase 84 U/L (26-308) 07/23/20 22:05 Troponin I < 0.02 ng/ml (0.00-0.05) 07/24/20 13:40 Total Protein 6.7 g/dl (6.4-8.2) 07/24/20 13:40 Albumin 3.3 g/dl (3.4-5.0) L 07/24/20 13:40 Triglycerides 86 mg/dL (0-150) 07/24/20 13:40 Cholesterol 153 mg/dL (50-200) 07/24/20 13:40 Total LDL Cholesterol 64 mg/dL (5-100) 07/24/20 13:40 HDL Cholesterol 78 mg/dL (40-60) H 07/24/20 13:40 cxr: clear ecg: sr nl intervals no ischemic changes tele: sr carotids 07/2020: no sig stenosis a/p: Patient is a 60 year old male with history of syncope s/p Loop recorder ([employer]) implanted in May 2019 at [facility] here with syncope. syncope, dizziness: -recurrent episodes -no signs acs or chf -ecg and tele benign -carotids w/o stenosis -echo pending -will contact [employer] to check loop recorder -monitor on tele for now cp: -atypical, reproducible, seems MSK, no suggestion of cardiac etiology. no signs acs.
[2020-07-24] MEDS: oxyCODONE HCL 5 MG TABLET PO PRN (20:18)
[2020-07-24] MEDS ORDERED: HYDROCORTISONE 10 MG TABLET PO SCH (22:00)
[2020-07-24] MEDS: FERROUS SO4 325 MG TABLET (FP) PO SCH (22:09)
[2020-07-24 23:16] VITALS: BMI 29.9
[2020-07-25] MEDS: oxyCODONE HCL 5 MG TABLET PO PRN ×3 (01:57→14:10)
--- NOTE | 2020-07-25 05:29 | PN ---
Progress Note, Physician Chief Complaint: [employer] loop recorder interrogated, report in chart No sig arrhythmias TELE: NSR, single PVC No CP/SOB/palps/dizziness History of Present Illness: Syncope Hx of [employer] ILR Hx meningioma SH: former smoker - Current Medication List Current Medications: Active Medications Acetaminophen (Tylenol -) 650 mg PO Q4H PRN PRN Reason: PAIN LEVEL 4 - 6 Ascorbic Acid (Vitamin C -) 250 mg PO DAILY [facility] Enoxaparin Sodium (Lovenox -) 40 mg SQ DAILY [facility] Last Admin: 07/24/20 09:59 Dose: 40 mg Documented by: Ferrous Sulfate (Feosol -) 325 mg PO BID [facility] Last Admin: 07/24/20 22:09 Dose: 325 mg Documented by: Hydrocortisone (Cortef -) 5 mg PO DAILY [facility] Hydrocortisone (Cortef -) 10 mg PO HS [facility] Last Admin: 07/24/20 22:10 Dose: 10 mg Documented by: Multivitamins/Minerals/Vitamin C (Tab-A-Vit -) 1 tab PO DAILY [facility] Oxycodone HCl (Roxicodone -) 10 mg PO Q6H PRN PRN Reason: PAIN LEVEL 7 - 10 Last Admin: 07/25/20 01:57 Dose: 10 mg Documented by: Pantoprazole Sodium (Protonix -) 40 mg PO DAILY [facility] - Objective Vital Signs: Vital Signs Temperature 97.7 F 07/25/20 01:00 Pulse Rate 73 07/25/20 01:00 Respiratory Rate 18 07/25/20 01:00 Blood Pressure 129/66 07/25/20 01:00 O2 Sat by Pulse Oximetry (%) 98 07/24/20 20:00 Constitutional: Yes: No Distress, Calm Cardiovascular: Yes: Regular Rate and Rhythm Respiratory: Yes: CTA Bilaterally Gastrointestinal: Yes: Soft (nt) Edema: No Neurological: Yes: Alert, Oriented ...Motor Strength: WNL Psychiatric: Yes: WNL Labs: CBC, BMP 07/24/20 13:40 07/24/20 13:40 INR, PTT INR 0.84 (0.83-1.09) 07/23/20 22:05 Laboratory Tests 07/23/20 07/24/20 07/24/20 22:05 03:16 13:40 WBC Hct Plt Count Sodium Potassium Creatinine Troponin I < 0.02 < 0.02 COVID-19 (ZAIRE) Pending 07/25/20 07/25/20 05:53 05:53 WBC 4.4 Hct 28.1 L Plt Count 133 L Sodium 141 Potassium 4.5 Creatinine 0.9 Troponin I COVID-19 (ZAIRE) - ....Imaging EKG: Image Reviewed Assessment/Plan ecg: sr nl intervals no ischemic changes tele: sr carotids 07/2020: no sig stenosis a/p: Patient is a 60 year old male with history of syncope s/p Loop recorder ([employer]) implanted in May [address] [facility] here with syncope. syncope, dizziness: -recurrent episodes -no signs acs or chf -ecg and tele benign -carotids w/o stenosis -echo pending -[employer]tronic ILR interrogated, report in paper chart: no sig arrhythmias -Check orthostatics cp: -atypical, reproducible, seems MSK, no suggestion of cardiac etiology. no signs acs. -Enzymes neg -for echo -Discharge planning
[2020-07-25 06:33] LABS: HEMATOCRIT 28.1 % (35.4-49); HEMOGLOBIN 8.9 GM/dL (11.7-16.9); MCH 27.5 pg (25.7-33.7); MCHC 31.6 g/dl (32.0-35.9); MEAN CELL VOLUME 87.2 fl (80-96); MEAN PLT VOLUME 10.7 fl (7.5-11.1); PLATELET COUNT 133 K/MM3 (134-434); RBC 3.23 M/mm3 (4.00-5.60); RDW 17.9 % (11.9-15.9); WHITE BLOOD COUNT 4.4 K/mm3 (4.0-10.0)
[2020-07-25 07:03] LABS: ALBUMIN 2.9 g/dl (3.4-5.0); BILIRUBIN,TOTAL 0.1 mg/dL (0.2-1); BLOOD UREA NITROGEN 20.4 mg/dL (7-18); CALCIUM 7.8 mg/dL (8.5-10.1); CREATININE 0.9 mg/dL (0.55-1.3); MAGNESIUM 2.2 mg/dL (1.8-2.4); PHOSPHOROUS 4.1 mg/dL (2.5-4.9); POTASSIUM 4.5 mmol/L (3.5-5.1); TOT PROT 5.8 g/dl (6.4-8.2)
[2020-07-25] MEDS ORDERED: PT OWN MED DRAWER 7, Y5N ONE (09:33)
[2020-07-25] MEDS: FERROUS SO4 325 MG TABLET (FP) PO SCH (09:36)
[2020-07-25] MEDS: ENOXAPARIN NA (PORCINE) 40 MG/0.4 ML DISP.SYRIN SQ SCH (09:37)
[2020-07-25] MEDS ORDERED: HYDROCORTISONE 5 MG TABLET PO SCH (10:00)
[2020-07-25] MEDS ORDERED: PANTOPRAZOLE 40 MG TABLET PO SCH (10:00)
[2020-07-25] MEDS ORDERED: ASCORBIC ACID 250 MG TABLET (FP) PO SCH (10:00)
[2020-07-25] MEDS ORDERED: MULTIVITAMINS (DAILY MVI) TABLET (FP) PO SCH (10:00)
--- NOTE | 2020-07-25 12:37 | PN ---
Teaching Attending Note Name of Resident: Mateo Reyes ATTENDING PHYSICIAN STATEMENT I saw and evaluated the patient. I reviewed the resident's note and discussed the case with the resident. I agree with the resident's findings and plan as documented. SUBJECTIVE: Seen and examined at bedside. No complaints. Interrogation of loop recorder with no significant arrhythmias. Orthostatics negative. Multiple hospital records obtained. Patient had unremarkable echocardiogram in February of this year. As syncope predates this a new echocardiogram is of low clinical value. An MRI at [facility] earlier this year showed stability of the meningioma since 2017. After reviewing other medical records, there are no additional tests that can be performed and patient that would contribute to his diagnosis. Patient is medically cleared for discharge. We will attempt to set up a coordinated care for him within the [facility] system. Patient instructed that all of his patients should be within the same system to ensure adequate communication and coordination between his doctors given the complexity of his care. OBJECTIVE Last Vital Signs Temp Pulse Resp BP Pulse Ox 97.9 F 48 L 21 H 150/99 100 07/24/20 07:10 07/24/20 09:59 07/24/20 09:59 07/24/20 09:59 07/24/20 09:59 PE: Per resident note Labs/Imaging: reviewed ASSESSMENT/PLAN 60-year-old male with past medical history of multiple syncopal episodes, chronic back pain, renal sufficiency, migraines, loop recorder in place, recently diagnosed meningioma presents with another syncopal episode. This patient has had numerous hospitalizations at multiple different hospitals without adequate follow-up for the last 6 months and is highly disorganized care. Interrogation of loop recorder with no significant arrhythmias. Orthostatics negative. Multiple hospital records obtained. Patient had unremarkable echocardiogram in February of this year. As syncope predates this a new echocardiogram is of low clinical value. An MRI at [facility] earlier this year showed stability of the meningioma since 2017. After reviewing other medic al records, there are no additional tests that can be performed and patient that would contribute to his diagnosis. Patient is medically cleared for discharge. We will attempt to set up a coordinated care for him within the [facility] system. Patient instructed that all of his patients should be within the same system to ensure adequate communication and coordination between his doctors given the complexity of his care.
[2020-07-25 13:32] VITALS: BP 128/79; PULSE 58; TEMP 97.8
--- NOTE | 2020-07-25 13:41 | DS ---
Physical Exam: SUBJECTIVE: Patient seen and examined at bedside. Denies acute complaints. Ambulating without any further syncopal episodes, or chest pain, palpitations, lightheadedness, dizziness, nausea, vomiting. OBJECTIVE: Vital Signs Period Temp Pulse Resp BP Sys/Sparks Pulse Ox Last 24 Hr 97.6 F-97.9 F 57-106 18-20 110-129/46-90 95-100 PHYSICAL EXAM GENERAL: The patient is awake, alert, and fully oriented, in no acute distress. HEAD: Normocephalic, atraumatic. EYES: PERRL, extraocular movements intact, sclera anicteric. ENT: Oropharynx clear, without erythema or exudates. Moist mucous membranes. NECK: Trachea midline, full range of motion. Supple without lymphadenopathy. LUNGS: Breath sounds equal, clear to auscultation bilaterally. No wheezes, no crackles. No accessory muscle use. HEART: Regular rate and rhythm. S1, S2 without murmur, rub or gallop. ABDOMEN: Soft, nondistended, nontender to light and deep palpation x4 quadrants. No rebound tenderness, no guarding. Normoactive bowel sounds x4 quadrants. No hepatosplenomegaly, no masses appreciated. EXTREMITIES: 2+ radial, dorsalis pedis pulses bilaterally. Warm, well-perfused. No lower extremity edema bilaterally. BACK: Tenderness to palpation over thoracic and lumbar spine. NEUROLOGICAL: Cranial nerves II through XII grossly intact. Normal speech. No gross focal deficits. PSYCH: Normal mood, normal affect upon my encounter. SKIN: Warm, dry. LABS Laboratory Results - last 24 hr 07/24/20 07/24/20 07/24/20 03:16 13:40 13:40 WBC 5.1 RBC 3.57 L Hgb 9.8 L Hct 31.1 L MCV 87.1 MCH 27.3 MCHC 31.4 L RDW 18.2 H Plt Count 124 L MPV 9.1 Absolute Neuts (auto) 3.0 Neutrophils % 58.6 Lymphocytes % 31.3 Monocytes % 6.8 Eosinophils % 2.4 Basophils % 0.9 Nucleated RBC % 0 Sodium 140 Potassium 4.5 Chloride 108 H Carbon Dioxide 25 Anion Gap 7 L BUN 16.8 Creatinine 1.1 Est GFR (CKD-EPI)AfAm 84.12 Est GFR (CKD-EPI)NonAf 72.58 Random Glucose 99 Calcium 8.4 L Phosphorus 4.3 Magnesium 2.2 Iron TIBC Iron Saturation Unsaturated IBC Transferrin Ferritin Total Bilirubin 0.2 AST 18 ALT 31 Alkaline Phosphatase 82 Troponin I Total Protein 6.7 Albumin 3.3 L Triglycerides 86 Cholesterol 153 Total LDL Cholesterol 64 HDL Cholesterol 78 H COVID-19 (ZAIRE) Not detected 07/24/20 07/24/20 07/24/20 13:40 13:40 13:40 WBC RBC Hgb Hct MCV MCH MCHC RDW Plt Count MPV Absolute Neuts (auto) Neutrophils % Lymphocytes % Monocytes % Eosinophils % Basophils % Nucleated RBC % Sodium Potassium Chloride Carbon Dioxide Anion Gap BUN Creatinine Est GFR (CKD-EPI)AfAm Est GFR (CKD-EPI)NonAf Random Glucose Calcium Phosphorus Magnesium Iron 68 TIBC 403 Cancelled Iron Saturation 16 L Unsaturated IBC 335 H Transferrin 307 Ferritin 11.4 Cancelled Total Bilirubin AST ALT Alkaline Phosphatase Troponin I < 0.02 Total Protein Albumin Triglycerides Cholesterol Total LDL Cholesterol HDL Cholesterol COVID-19 (ZAIRE) 07/25/20 07/25/20 05:53 05:53 WBC 4.4 RBC 3.23 L Hgb 8.9 L Hct 28.1 L MCV 87.2 MCH 27.5 MCHC 31.6 L RDW 17.9 H Plt Count 133 L MPV 10.7 D Absolute Neuts (auto) Neutrophils % Lymphocytes % Monocytes % Eosinophils % Basophils % Nucleated RBC % Sodium 141 Potassium 4.5 Chloride 110 H Carbon Dioxide 25 Anion Gap 6 L BUN 20.4 H Creatinine 0.9 Est GFR (CKD-EPI)AfAm 107.22 Est GFR (CKD-EPI)NonAf 92.51 Random Glucose 108 H Calcium 7.8 L Phosphorus 4.1 Magnesium 2.2 Iron TIBC Iron Saturation Unsaturated IBC Transferrin Ferritin Total Bilirubin 0.1 L AST 16 ALT 27 Alkaline Phosphatase 74 Troponin I Total Protein 5.8 L Albumin 2.9 L Triglycerides Cholesterol Total LDL Cholesterol HDL Cholesterol COVID-19 (ZAIRE) HOSPITAL COURSE: Date of Admission:07/24/20 Date of Discharge: 07/25/20 Patient is a 60 year old male with history of numerous prior syncopal episodes s/p loop recorder, reported meningioma, adrenal insufficiency, GI polyps (s/p colonoscopy 4 years ago), chronic back pain, presents after syncopal episode. CT head did not reveal acute pathology. Thoracic, lumbar spine radiographs did not reveal acute fracture. Records were obtained from [facility] which confirmed Meningioma (stable), and adrenal insufficiency. Evaluated by cardiology, and loop recorder was interrogated- revealed no arrhythmia. Telemetry monitoring did not reveal arrhythmia. Patient discharged home with follow up with Neurosurgery, Cardiology, Endocrinology, and Primary sd re physician. All concerns, questions addressed and discussed. Minutes to complete discharge: 37 Discharge Summary Problems reviewed: Yes Reason For Visit: SYNCOPE Current Active Problems Syncope (Acute) Condition: Stable - Instructions Diet, Activity, Other Instructions: You were admitted to the hospital for evaluation of a syncopal episode. 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 No arrhythmias were recorded. Your records were obtained from your prior hospitalizations. You were noted to have adrenal insufficiency, and a meningioma which require outpatient follow up. Continue taking your home medications as directed Follow up with your primary care physician within one -two days after discharge. A referral to Dr. Govea has been provided. Follow up with Neurosurgeon regarding your meningioma. A referral to Osbaldo Dsouza has been provided. Follow up with [facility] to discuss your adrenal insufficienry. A referral to Dr. Lazo has been provided. Follow up with Home Care Chaplain to firther discuss your loop recorder. Referral to Terrence Montgomery has been provided. BE SURE TO BRING ALL OF YOUR MEDICAL RECORDS TO EACH OF YOUR DOCTORS APPOINT MENTS. Return to the nearest emergency department if you experience worsening symptoms, subjective fevers, chills, shortness of breath, chest pain, palpitations, abdominal pain, nausea, vomiting, any trauma or loss of consciousness. Referrals: Terrence Washington [Other] - 1 Week (Cardiology referral. Patient with [employer] loop recorder, history numerous syncopal episodes. ) Jaelyn Lazo [Other] - 1 Week (Endocrinology follow up. Patient has reported history of adrenal insufficiency. ) Cj Govea [Other] - 1 Week (Referral for primary care physician- establish care.) Maverick Escobar MD [Non Staff, Medical] - 1 Week (Follow up reggarding Meningioma noted on prior MRI. History syncopal episodes. [phone] [place] [id number]) Disposition: HOME - Home Medications Comprehensive Discharge Medication List: Ambulatory Orders Oxycodone HCl/Acetaminophen [Percocet 10-325 mg Tablet] 1 each PO Q6H PRN 02/16/20 Ascorbic Acid [Vitamin C -] 250 mg PO DAILY #30 tablet 02/19/20 Ferrous Sulfate [Feosol] 325 mg PO BID #60 ud 02/19/20 Multivitamins [Multivit ([facility] Formulary)] 1 tab PO DAILY tab 02/19/20 Pantoprazole Sodium [Protonix -] 40 mg PO DAILY #30 tablet.ec 02/19/20 Hydrocortisone 5 mg PO DAILY 07/24/20 Hydrocortisone 10 mg PO HS 07/24/20 This patient is new to me today: No Emergency Visit: Yes ED Registration Date: 07/24/20 Care time: The patient presented to the Emergency Department on the above date and was hospitalized for further evaluation of their emergent condition. Critical Care patient: No - Discharge Referral Referred to [facility] Med P.C.: No ATTENDING PHYSICIAN STATEMENT I saw and evaluated the patient. I reviewed the resident's note and discussed the case with the resident. I agree with the resident's findings and plan as documented. SUBJECTIVE: OBJECTIVE: ASSESSMENT AND PLAN:
== END 2020-07-25 16:45 | disposition home or self-care (01) | DRG 204 ==
LOC: JER 21:23 → JERBED 07-24 01:06 → OBSVTOIN 07-24 05:54 → J4S 07-24 20:05
PROVIDERS: ADMIT Internal Medicine; ATTEND Internal Medicine
DX: R55 Syncope and collapse (principal); M54.89 Other dorsalgia; R07.89 Other chest pain; K21.9 Gastro-esophageal reflux disease without esophagitis; G43.909 Migraine, unspecified, not intractable, without status migrainosus; G89.29 Other chronic pain; D42.9 Neoplasm of uncertain behavior of meninges, unspecified; E27.40 Unspecified adrenocortical insufficiency; D64.9 Anemia, unspecified; E66.9 Obesity, unspecified; Z68.30 Body mass index [BMI] 30.0-30.9, adult; Z98.84 Bariatric surgery status
CPT/HCPCS: 36415; 70450-TC; 71046-TC-FY; 72070-TC-FY; 72100-TC-FY; 80053; 80061; 82533; 82550; 82728; 83540; 83550; 83721; 83735; 84100; 84466; 84484; 85025; 85027; 85610; 85730; 93005; 93010; 93880-TC; 97116-GP; 97161-GP; 99285-25; G0378; U0003